=== PATIENT | female | born 1985 | race Caucasian/White ===

== ENCOUNTER → 2016-11-16 | Outpatient (CLI) | payer OTHER ==
[~2016-11-16] MED LIST: ALLERGY SHOTS SC; ASTN NAE; CLR10 PO; CYAN3INJ IM; MTR800 PO; PSEU30TA3 PO; RMCI IV; SULF800T23 PO
== END | disposition home or self-care (01) ==
LOC: C.LAB 17:30
PROVIDERS: ATTEND Registered Nurse
DX: R19.7 Diarrhea, unspecified (principal)

== ENCOUNTER 2016-11-28 15:40 | Emergency (ER) | payer OTHER ==
[~2016-11-28] VITALS: Ht 152.4 cm; Wt 39.6 kg
[~2016-11-28 15:40] MED LIST changes: -SULF800T23 PO
[2016-11-28 16:02] VITALS: TEMP 36.9; Ht 152.4 cm; Wt 39.6 kg
--- NOTE | 2016-11-28 18:42 | EMERGENCY ROOM VISIT NOTE ---
History Report prepared by Vikki: Kingsley Lee Under the Supervision of: Dr. Carlos Alberto Jackson D.O. First contact with patient: 18:10 Chief Complaint: SINUS CONGESTION/PRESSURE Stated Complaint: SINUS INFECTION/FUNGAL Nursing Triage Summary: patient c/o "really bad sinus infection that has lasted for months" states she' s been on antibiotics and antifungals. Hx sinus surgery in the past. Patient complains of equilibrium being off and nasal passages burning. History of Present Illness The patient is a 30 year old female who presents to the Emergency Room with complaints of a persistent sinus infection beginning a few months ago. She notes she has been seen by an ENT and her PCP multiple times for this. She had sinus surgery last year, and has received antibiotics but her symptoms persists. The patient reports her tonsils became swollen about 3 weeks ago, and her ENT noted a fungal infection at this time as well. She is scheduled for a tonsillectomy in a couple months, but she has tried to call and cancel this appointment. She notes that "it smells like something is in her nose" and reports burning sensation in her nose. The patient is on immunosuppressants for Crohn's disease, and also reports a history of hyperthyroidism. Source of History: patient Onset: a few months ago Position: other (sinuses) Quality: other (sinus infection) Timing: other (persistent) Associated Symptoms: + nausea Note: The patient reports swelling of her tonsils. Review of Systems See HPI for pertinent positives & negatives. A total of 10 systems reviewed and were otherwise negative. Past Medical & Surgical Medical Problems: (1) Anal fistula (2) Bartholin's cyst (3) Crohn disease (4) Hypothyroidism (5) Ovarian cyst (6) Sinus arrhythmia Family History Patient reports no known family medical history. Social History Smoking Status: Current Every Day Smoker Alcohol Use: occasionally Marital Status: Housing Status: lives with family Occupation Status: other Current/Historical Medications Scheduled Cyanocobalamin (Vitamin B-12 Inj), 1 ML IM MONTHLY Infliximab (Remicade), 250 MG IV [id number] Sulfa/Trimethoprim (Bactrim Ds 800MG/160MG), 1 TAB PO BID [Allergy Shots], 3 DOSE SC WK Scheduled PRN Azelastine Hcl (Astelin Nasal [place]), 2 SPRAYS [place] BID PRN for Nasal Congestion Ibuprofen (Ibuprofen), 800 MG PO TID PRN for Severe Pain Loratadine (Claritin), 10 MG PO DAILY PRN for Allergy Symptoms Pseudoephedrine Hcl (Sudafed Nasal Decongestan), 30 MG PO UD PRN for Nasal Congestion Allergies Coded Allergies: Bacitracin (Verified Allergy, Unknown, Unknown rxn, 11/28/16) Neomycin (Verified Allergy, Unknown, Unknown rxn, 11/28/16) Polymyxin B (Verified Allergy, Unknown, Unknown rxn, 11/28/16) Physical Exam Vital Signs Date Time Temp Pulse Resp B/P Pulse Ox O2 Delivery O2 Flow Rate FiO2 11/28/16 19:03 75 18 92/51 100 Room Air 11/28/16 16:02 95 Room Air 11/28/16 16:02 36.9 94 17 105/74 98 Room Air Physical Exam CONSTITUTIONAL/VITAL SIGNS: Reviewed / noted above. GENERAL: Non-toxic in appearance. INTEGUMENTARY: Warm, dry, and [place]. HEAD: Normocephalic. EYES: without scleral icterus or trauma. ENT/OROPHARYNX: clear and moist. LYMPHADENOPATHY/NECK: Is supple without lymphadenopathy or meningismus. RESPIRATORY: Lungs clear and equal. CARDIOVASCULAR: Regular rate and rhythm. GI/ABDOMEN: Soft and nontender. No organomegaly or pulsatile mass. No rebound or guarding. Normal bowel sounds. EXTREMITIES: Warm and well perfused. BACK: No CVA tenderness. NEUROLOGICAL: Intact without focal deficits. PSYCHIATRIC: normal affect. MUSCULOSKELETAL: Normally developed with good muscle tone. Medical Decision & Procedures ER Provider Diagnostic Interpretation: Radiology results as stated below per my review and radiologist interpretation: SINUS CT WITHOUT CONTRAST FINDINGS: Visualized portions of the intracranial contents are unremarkable on this unenhanced exam. The orbits are within normal limits. Mastoid air cells are clear. There is no fluid within the middle ears. There is extensive mucosal thickening with near complete opacification of the left sphenoid sinus which has increased since exam of November 19, 2015. The left sphenoethmoidal recess is occluded. The right ostiomeatal complex is narrowed by mucosal thickening. There is mild rightward deviation of the nasal septum. No bony destruction is present. IMPRESSION: 1. Near complete opacification of the left sphenoid sinus which is increased since CT of November 19, 2015. Occluded left sphenoethmoidal recess. 2. No bony destruction. Electronically signed by: Nestor Honeycutt M.D. 11/28/2016 7:11 PM Dictated Date/Time: 11/28/2016 7:07 PM ED Course 181: Previous medical records were reviewed. The patient was evaluated in room C6. A complete history and physical examination was performed. 1944: Ordered Trimethoprim/Sulfamethoxazole 1 tab PO. 1949: On reevaluation, the patient is doing well. I discussed the results and findings with the patient. She verbalized agreement of the treatment plan. The patient was discharged home. Medical Decision Differential includes viral illness, influenza, streptococcal pharyngitis, meningitis, pneumonia, sinusitis, UTI, pyelonephritis, otitis media. This is a 30-year-old female who presents to the ED with a chief complaint of problems with her sinuses. The patient states that she has had symptoms for quite a long time. She is actually had sinus surgery in the past. She sees Dr. Cervantes ENT from [place]. She states that she last saw him about 3 weeks ago. She has been told that she has a bacterial and fungal infection of the sinuses. She states that she is to have her tonsils removed in December because her issues. She has been on a number of antibiotics. Most recently she has been taking Diflucan. The patient states that she has burning in the left side of her nasal passages and smells like there is something in her sinuses. The patient's exam was unremarkable. She does have a history of Crohn's disease. A CT scan of the sinuses reveals left sphenoid sinus opacification that is increased from 11/18. The patient was started on Bactrim. She was given a dose here. She was given Motrin PO. She is to follow-up with her ENT and PCP for continued evaluation of her symptoms. Impression Primary Impression: Sinusitis, acute, sphenoidal Scribe Attestation The scribe's documentation has been prepared under my direction and personally reviewed by me in its entirety. I confirm that the note above accurately reflects all work, treatment, procedures, and medical decision making performed by me. Departure Information Dispostion Home / Self-Care Prescriptions Sulfa/Trimethoprim (Bactrim Ds 800MG/160MG) Tab 1 TAB PO BID, #20 TAB Prov: Carlos Alberto Jackson D.O. 11/28/16 Referrals Genia Connolly D.O. (PCP) Patient Instructions ED Sinusitis Abx Tx, [facility] Additional Instructions Bactrim as prescribed. Follow-up with your ENT specialist as soon as possible for further evaluation.
--- NOTE | 2016-11-28 19:12 | DIAGNOSTIC IMAGING REPORT ---
SINUS CT WITHOUT CONTRAST CLINICAL HISTORY: Sinus pain. Sinus infection. COMPARISON STUDY: Sinus CT November 19, 2015. Technique: Helical axial images of the sinuses were obtained without IV contrast. Coronal reformats were viewed. CT DOSE: 510.14 mGy.cm FINDINGS: Visualized portions of the intracranial contents are unremarkable on this unenhanced exam. The orbits are within normal limits. Mastoid air cells are clear. There is no fluid within the middle ears. There is extensive mucosal thickening with near complete opacification of the left sphenoid sinus which has increased since exam of November 19, 2015. The left sphenoethmoidal recess is occluded. The right ostiomeatal complex is narrowed by mucosal thickening. There is mild rightward deviation of the nasal septum. No bony destruction is present. IMPRESSION: 1. Near complete opacification of the left sphenoid sinus which is increased since CT of November 19, 2015. Occluded left sphenoethmoidal recess. 2. No bony destruction. Electronically signed by: Nestor Honeycutt M.D. 11/28/2016 7:11 PM Dictated Date/Time: 11/28/2016 7:07 PM
[2016-11-28] MEDS ORDERED: SULF800T23 PO (19:40)
[2016-11-28] MEDS ORDERED: IBUPROFEN 600 MG TAB PO STA (19:44)
[2016-11-28] MEDS ORDERED: SULFAMETHOXAZOLE/TRIMETHOPRIM DS 800/160MG TAB PO ONE (19:45)
[2016-11-28 19:59] VITALS: BP 114/69; PULSE 88; O2SAT 100
== END 2016-11-28 20:07 | disposition home or self-care (01) ==
LOC: C.EDB 15:41 → C.EDC 20:07
DX: J01.30 Acute sphenoidal sinusitis, unspecified (principal); K50.90 Crohn's disease, unspecified, without complications; F17.200 Nicotine dependence, unspecified, uncomplicated; Z79.899 Other long term (current) drug therapy

== ENCOUNTER → 2017-02-20 | Outpatient (CLI) | payer OTHER ==
[~2017-02-20] MED LIST changes: +CYAN1KIT3 PO; +METR250T PO; +OXYC-57 PO; +PRED20TA PO; +SULF800T23 PO
[2017-02-20 12:11] LABS: BASO % 0.2 %; BASO ABS # 0.02 K/uL (0-0.2); COMPLETE YES; EOS % 2.8 %; HEMATOCRIT 41.4 % (37-47); IG% 0.2 %; LYMPH % 27.6 %; LYMPH ABS # 2.37 K/uL (1.2-3.4); MEAN CELL VOLUME 90.2 fL (80-100); MEAN CORPUSCULAR HEMOGLOBIN 30.5 pg (25-34); MEAN CORPUSCULAR HGB CONC 33.8 g/dl (32-36); MEAN PLATELET VOLUME 10.2 fL (7.4-10.4); MONO % 5.2 %; PLATELET COUNT 339 K/uL (130-400); RED BLOOD COUNT 4.59 M/uL (4.2-5.4)
[2017-02-20 12:41] LABS: ALT/SGPT 22 U/L (12-78); BLOOD UREA NITROGEN 12 mg/dl (7-18); BUN/CREATININE RATIO 16.7 (10-20); C-REACTIVE PROTEIN < 0.29 mg/dl (0-0.29); CALCIUM 9.3 mg/dl (8.5-10.1); CARBON DIOXIDE 25 mmol/L (21-32); CHLORIDE 106 mmol/L (98-107); CREATININE 0.69 mg/dl (0.60-1.20); GLUCOSE 77 mg/dl (70-99); POTASSIUM 3.9 mmol/L (3.5-5.1); SODIUM 138 mmol/L (136-145)
[2017-02-20 12:44] LABS: ALB/GLOB RATIO 1.2 (0.9-2); ALKALINE PHOSPHATASE 48 U/L (45-117); AST/SGOT 9 U/L (15-37)
== END | disposition home or self-care (01) ==
LOC: C.LABSPEC 12:02
PROVIDERS: ATTEND Registered Nurse
DX: K50.90 Crohn's disease, unspecified, without complications (principal)

== ENCOUNTER 2017-06-18 16:58 | Emergency (ER) | payer OTHER ==
[~2017-06-18] VITALS: Ht 152.4 cm; Wt 38.4 kg
[~2017-06-18 16:58] MED LIST changes: -CYAN1KIT3 PO; -METR250T PO; -OXYC-57 PO; -PRED20TA PO; -SULF800T23 PO
[2017-06-18 17:42] VITALS: TEMP 37.3; Ht 152.4 cm; Wt 38.4 kg
[2017-06-18] MEDS ORDERED: ONDANSETRON INJ 2 MG/ML 2 ML VIAL IV STA ×2 (18:14)
[2017-06-18] MEDS ORDERED: METHYLPREDNISOLONE 125 MG VIAL IV STA (18:14)
[2017-06-18] MEDS ORDERED: KETOROLAC TROMETHAMINE 30 MG/ML VIAL IV STA (18:14)
[2017-06-18] MEDS ORDERED: SODIUM CHLORIDE 0.9% 1000ML 1,000 ML IV STA (18:14)
--- NOTE | 2017-06-18 18:22 | EMERGENCY ROOM VISIT NOTE ---
History Report prepared by Vikki: Robin Cronin Under the Supervision of: Dr. Connor Cardona M.D. First contact with patient: 18:06 Chief Complaint: ABDOMINAL PAIN Stated Complaint: STOMACH PAIN Nursing Triage Summary: patient to ED via triage c/o abdominal pain, states "I have crohn's, and I have been fluctuating between diarhhea and being blocked up, I'm worried I have blockage at this point. Theres a constant pain that flares up" History of Present Illness The patient is a 31 year old female who presents to the Emergency Room with complaints of worsening stabbing right lower quadrant abdominal pain that began today. She rates her pain a 5/10 in severity. She has a past medical history of Crohn's disease that has been under control for quite some time. However, over the past two months she has not been having stable, normal bowel movements. She is either going very frequently or is constipated. She has been using multiple medications to try to normalize her bowels, but they have not been helping. She is currently on Remicade for her Crohn's. When she tried to eat some soup earlier today, her pain began to radiate to her back and diffusely throughout her abdomen. She had a very thin bowel movement today, but it was not much. She is also lightheaded and dizzy. She denies any melena or hematochezia. She notes that steroids help her Crohn's symptoms. Source of History: patient Onset: today Position: abdomen (RLQ) Symptom Intensity: 5/10 Quality: stabbing Timing: worsening Associated Symptoms: + back pain, No melena, No hematochezia Note: She is dizzy and lightheaded. Review of Systems See HPI for pertinent positives & negatives. A total of 10 systems reviewed and were otherwise negative. Past Medical & Surgical Medical Problems: (1) Anal fistula (2) Bartholin's cyst (3) Crohn disease (4) Hypothyroidism (5) Ovarian cyst (6) Sinus arrhythmia Family History Patient reports no known family medical history. Social History Smoking Status: Current Every Day Smoker Alcohol Use: occasionally Marital Status: Housing Status: lives with family Occupation Status: other Current/Historical Medications Scheduled Cyanocobalamin (B-12 Compliance Injection), 1,000 MCG PO MONTHLY Infliximab (Remicade), 250 MG IV [id number] Scheduled PRN Azelastine Hcl (Astelin Nasal [place]), 2 SPRAYS [place] BID PRN for Nasal Congestion Loratadine (Claritin), 10 MG PO DAILY PRN for Allergy Symptoms Oxycodone/Acetaminophen 5MG/325MG (Percocet 5MG/325MG), 1 TABLET PO Q4H PRN for Pain Pseudoephedrine Hcl (Sudafed Nasal Decongestan), 30 MG PO UD PRN for Nasal Congestion Allergies Coded Allergies: Bacitracin (Verified Allergy, Unknown, Unknown rxn, 06/18/17) Neomycin (Verified Allergy, Unknown, Unknown rxn, 06/18/17) Polymyxin B (Verified Allergy, Unknown, Unknown rxn, 06/18/17) Physical Exam Vital Signs Date Time Temp Pulse Resp B/P (MAP) Pulse Ox O2 Delivery O2 Flow Rate FiO2 06/18/17 19:33 96 112/62 94 Room Air 06/18/17 17:42 37.3 126 20 104/70 100 Room Air Physical Exam GENERAL: Patient is in no acute distress. HEENT: No acute trauma, normocephalic atraumatic, mucous membranes moist, no nasal congestion, no scleral icterus. NECK: No stridor, no adenopathy, no meningismus, trachea is midline. LUNGS: Clear to auscultation bilaterally, no wheeze, no rhonchi, breath sounds equal. HEART: Tachycardic with a regular rhythm. No murmurs. ABDOMEN: Soft, diffuse moderate tenderness, bowel sounds positive, no hernias, no peritonitis. EXTREMITIES: No cyanosis or edema, full range of motion of all the joints without pain or difficulty, no signs for acute trauma. NEUROLOGIC: Oriented x 3, no acute motor or sensory deficits, no focal weakness. SKIN: No rash, no jaundice, no diaphoresis. Medical Decision & Procedures ER Provider Diagnostic Interpretation: Radiology results as stated below per my review and radiologist interpretation: CT ABD/PELVIS IV CONTRAST ONLY CLINICAL HISTORY: Abdominal pain. Possible bowel obstruction. COMPARISON STUDY: 08/18/2015 TECHNIQUE: Following the IV administration of 116 mL of Optiray-320, CT scan of the abdomen and pelvis was performed from the lung bases to the proximal femurs. Images are reviewed in the axial, sagittal, and coronal planes. IV contrast was administered without complication. A dose lowering technique was utilized adhering to the principles of ALARA. CT DOSE: 229.40 mGy.cm FINDINGS: Lower chest: The heart is normal in size and configuration, without pericardial effusion. The lung bases and pleural spaces are clear. Liver: There is small hepatic hypodensities, the largest of which is located within the right lobe measuring 15 mm. This demonstrates nodular peripheral enhancement. This likely represents a hemangioma Gallbladder: Unremarkable. Spleen: Normal in size and attenuation. Pancreas: Unremarkable. Adrenal glands: Unremarkable. Kidneys: There are 2 right renal hypodensities, the largest of which measures 7 mm. These likely represent cysts Bowel: Evaluation the bowel is limited given the lack of orally administered contrast and the possibility of intra-abdominal fat. There are multiple fluid-filled bowel loops. There are no transition zones to indicate a high-grade bowel obstruction. There are no findings to indicate acute appendicitis. There are no findings to indicate acute diverticulitis. There is equivocal mild infiltration of the perirectal fat. Peritoneum: There is no intraperitoneal free air or abdominal ascites. Vasculature: The abdominal aorta is normal in course and caliber. Adenopathy: None. Pelvic viscera: The bladder, and pelvic viscera are unremarkable. Skeletal structures: No destructive osseous lesions are seen. IMPRESSION: 1. Multiple mildly prominent fluid-filled bowel loops without evidence of a discrete transition zone. The findings may represent a mild ileus. There are no current CT findings to indicate a high-grade bowel obstruction. There is no free air. 2. Multiple hepatic masses, likely representing hemangiomas 3. No evidence of acute diverticulitis. No evidence of acute appendicitis 4. Equivocal mild infiltration of the perirectal fat. Clinical correlation with regards to symptoms of a proctitis is recommended. Electronically signed by: Mayco Elena M.D. 06/18/2017 7:57 PM Dictated Date/Time: 06/18/2017 7:48 PM Laboratory Results 06/18/17 18:14 Red Blood Count 4.53, Mean Corpuscular Volume 90.5, Mean Corpuscular Hemoglobin 30.9, Mean Corpuscular Hemoglobin Concent 34.1, Mean Platelet Volume 9.5, Neutrophils (%) (Auto) 86.2, Lymphocytes (%) (Auto) 7.3, Monocytes (%) (Auto) 5.9, Eosinophils (%) (Auto) 0.2, Basophils (%) (Auto) 0.0, Neutrophils # (Auto) 18.10, Lymphocytes # (Auto) 1.53, Monocytes # (Auto) 1.25, Eosinophils # (Auto) 0.05, Basophils # (Auto) 0.01 06/18/17 18:14 Test 06/18/17 18:14 06/18/17 19:50 White Blood Count 21.02 K/uL (4.8-10.8) Red Blood Count 4.53 M/uL (4.2-5.4) Hemoglobin 14.0 g/dL (12.0-16.0) Hematocrit 41.0 % (37-47) Mean Corpuscular Volume 90.5 fL (80-100) Mean Corpuscular Hemoglobin 30.9 pg (25-34) Mean Corpuscular Hemoglobin Concent 34.1 g/dl (32-36) Platelet Count 299 K/uL (130-400) Mean Platelet Volume 9.5 fL (7.4-10.4) Neutrophils (%) (Auto) 86.2 % Lymphocytes (%) (Auto) 7.3 % Monocytes (%) (Auto) 5.9 % Eosinophils (%) (Auto) 0.2 % Basophils (%) (Auto) 0.0 % Neutrophils # (Auto) 18.10 K/uL (1.4-6.5) Lymphocytes # (Auto) 1.53 K/uL (1.2-3.4) Monocytes # (Auto) 1.25 K/uL (0.11-0.59) Eosinophils # (Auto) 0.05 K/uL (0-0.5) Basophils # (Auto) 0.01 K/uL (0-0.2) RDW Standard Deviation 42.0 fL (36.4-46.3) RDW Coefficient of Variation 12.7 % (11.5-14.5) Immature Granulocyte % (Auto) 0.4 % Immature Granulocyte # (Auto) 0.08 K/uL (0.00-0.02) Anion Gap 8.0 mmol/L (3-11) Est Creatinine Clear Calc Drug Dose 75.3 ml/min Estimated GFR () 136.2 Estimated GFR (Non- 117.5 BUN/Creatinine Ratio 18.2 (10-20) Calcium Level 9.1 mg/dl (8.5-10.1) Total Bilirubin 0.5 mg/dl (0.2-1) Aspartate Amino Transf (AST/SGOT) 9 U/L (15-37) Alanine Aminotransferase (ALT/SGPT) 22 U/L (12-78) Alkaline Phosphatase 48 U/L (45-117) Total Protein 7.6 gm/dl (6.4-8.2) Albumin 4.2 gm/dl (3.4-5.0) Globulin 3.4 gm/dl (2.5-4.0) Albumin/Globulin Ratio 1.2 (0.9-2) Lipase 124 U/L (73-393) Human Chorionic Gonadotropin, Qual NEG (NEG) Urine Color YELLOW Urine Appearance CLEAR (CLEAR) Urine pH 5.0 (4.5-7.5) Urine Specific [place] 1.033 (1.000-1.030) Urine Protein NEG (NEG) Urine Glucose (UA) NEG (NEG) Urine Ketones NEG (NEG) Urine Occult Blood 2+ (NEG) Urine Nitrite NEG (NEG) Urine Bilirubin NEG (NEG) Urine Urobilinogen NEG (NEG) Urine Leukocyte Esterase TRACE (NEG) Urine WBC (Auto) 1-5 /hpf (0-5) Urine RBC (Auto) 5-10 /hpf (0-4) Urine Hyaline Casts (Auto) 1-5 /lpf (0-5) Urine Epithelial Cells (Auto) >30 /lpf (0-5) Urine Bacteria (Auto) NEG (NEG) Laboratory results reviewed by me. Medications Administered Medications (Trade) Dose Ordered Sig/Anne Route Start Time Stop Time Status Last Admin Dose Admin Ondansetron HCl (Zofran Inj) 4 mg NOW STAT IV 06/18/17 18:14 06/18/17 18:17 DC 06/18/17 18:55 4 MG Sodium Chloride 1,000 ml @ 999 mls/hr Q1H1M STAT IV 06/18/17 18:14 06/18/17 19:14 DC 06/18/17 18:54 999 MLS/HR Ketorolac Tromethamine (Toradol Inj) 30 mg NOW STAT IV 06/18/17 18:14 06/18/17 18:17 DC 06/18/17 18:56 30 MG Methylprednisolone Sodium Succinate (Solu-Medrol IV) 80 mg NOW STAT IV 06/18/17 18:14 06/18/17 18:17 DC 06/18/17 18:54 80 MG ED Course 1805: The patient was evaluated in room B10. A complete history and physical exam was performed. 1813: Ordered Solu-Medrol IV 80 mg IV, Zofran Inj 4 mg IV, Toradol Inj 30 mg IV , Sodium Chloride 1000 ml @ 999 mls/hr IV, Zofran Inj 4 mg IV 2012: I spoke with Dr. Hilton of gastroenterology at this time. We discussed the patient's case. He would prefer to have the patient receive steroids and stay as an inpatient for observation to be seen by him tomorrow. However, if she does not want to stay, she should be placed on Flagyl and a tapering dose of Steroids to be followed up with in his office. 2023: The patient would like to stay. I spoke [place] [facility] [place] evaluate the patient for further management and care. Medical Decision Differential diagnosis includes but is not limited to Crohn's exacerbation, bowel obstruction, dehydration, viral illness, UTI, renal failure, and electrolyte imbalance. There is a significant leukocytosis of 21,000, this could be consistent with infection or her pain. No anemia. No significant electrolyte abnormality, kidney failure or hepatitis. There is no pancreatitis. testing is negative. Urinalysis does not show infection. Abdominal and pelvis CT shows an ileus with a possible subtle proctitis. No true bowel obstruction. Clinically, the patient was not toxic or febrile. She did not have peritonitis. The patient received IV Zofran, IV Toradol, IV Solu-Medrol and IV saline, she feels improved, her tachycardia has resolved. The patient presents with diffuse abdominal pain, she has a leukocytosis. She has had ongoing symptoms now for weeks, she has seen GI recently. She is failing outpatient treatment. I talked to the patient's GI doctor. A hospital stay for hydration, bowel rest , IV steroids and close observation was recommended. I did speak to the patient about her findings and about the plan. I spoke with case management. The on-call hospitalist was consulted. Medication Reconcilliation Current Medication List: was personally reviewed by me Blood Pressure Screening Patient's blood pressure: Normal blood pressure Blood pressure disposition: Did not require urgent referral Consults Time Called: 2009 Consulting Physician: Dr. Hilton - Gastroenterology Returned Call: 2012 We discussed the patient's case. He would prefer to have the patient receive steroids and stay as an inpatient for observation to be seen by him tomorrow. However, if she does not want to stay, she should be placed on Flagyl and a tapering dose of Steroids to be followed up with in his office. Impression Primary Impression: Leukocytosis Additional Impressions: Ileus Exacerbation of Crohn's disease Failure of outpatient treatment Scribe Attestation The scribe's documentation has been prepared under my direction and personally reviewed by me in its entirety. I confirm that the note above accurately reflects all work, treatment, procedures, and medical decision making performed by me. Departure Information Dispostion Being Evaluated By Hospitalist Genia Carranza D.O. (PCP) Patient Instructions My [facility] Problem Qualifiers Primary Impression: Leukocytosis Leukocytosis type: unspecified Qualified Codes: D72.829 - Elevated white blood cell count, unspecified Additional Impressions: Exacerbation of Crohn's disease Digestive disease complication type: without complication Qualified Codes: K50.90 - Crohn's disease, unspecified, without complications
[2017-06-18] MEDS ORDERED: CYAN1KIT3 PO (18:31)
[2017-06-18] MEDS ORDERED: OXYC-57 PO (18:31)
[2017-06-18 18:52] LABS: BASO ABS # 0.01 K/uL (0-0.2); COMPLETE YES; EOS % 0.2 %; IG% 0.4 %; LYMPH % 7.3 %; LYMPH ABS # 1.53 K/uL (1.2-3.4); MEAN CELL VOLUME 90.5 fL (80-100); MEAN CORPUSCULAR HEMOGLOBIN 30.9 pg (25-34); MEAN CORPUSCULAR HGB CONC 34.1 g/dl (32-36); MEAN PLATELET VOLUME 9.5 fL (7.4-10.4); MONO % 5.9 %; NEUT % 86.2 %; PLATELET COUNT 299 K/uL (130-400); RED BLOOD COUNT 4.53 M/uL (4.2-5.4); WHITE BLOOD COUNT 21.02 K/uL (4.8-10.8)
[2017-06-18 19:11] LABS: PREG INTERNAL NEGATIVE QC NEG CLEAR BACKGROUND; PREG INTERNAL POSITIVE QC POS CONTROL LINE
[2017-06-18 19:12] LABS: BUN/CREATININE RATIO 18.2 (10-20); CALCIUM 9.1 mg/dl (8.5-10.1); CREATININE 0.65 mg/dl (0.60-1.20); POTASSIUM 3.2 mmol/L (3.5-5.1)
[2017-06-18 19:15] LABS: ALB/GLOB RATIO 1.2 (0.9-2)
[2017-06-18] MEDS ORDERED: OPTIRAY 320 IV PRN (19:45)
--- NOTE | 2017-06-18 19:59 | DIAGNOSTIC IMAGING REPORT ---
CT ABD/PELVIS IV CONTRAST ONLY CLINICAL HISTORY: Abdominal pain. Possible bowel obstruction. COMPARISON STUDY: 08/18/2015 TECHNIQUE: Following the IV administration of 116 mL of Optiray-320, CT scan of the abdomen and pelvis was performed from the lung bases to the proximal femurs. Images are reviewed in the axial, sagittal, and coronal planes. IV contrast was administered without complication. A dose lowering technique was utilized adhering to the principles of ALARA. CT DOSE: 229.40 mGy.cm FINDINGS: Lower chest: The heart is normal in size and configuration, without pericardial effusion. The lung bases and pleural spaces are clear. Liver: There is small hepatic hypodensities, the largest of which is located within the right lobe measuring 15 mm. This demonstrates nodular peripheral enhancement. This likely represents a hemangioma Gallbladder: Unremarkable. Spleen: Normal in size and attenuation. Pancreas: Unremarkable. Adrenal glands: Unremarkable. Kidneys: There are 2 right renal hypodensities, the largest of which measures 7 mm. These likely represent cysts Bowel: Evaluation the bowel is limited given the lack of orally administered contrast and the possibility of intra-abdominal fat. There are multiple fluid-filled bowel loops. There are no transition zones to indicate a high-grade bowel obstruction. There are no findings to indicate acute appendicitis. There are no findings to indicate acute diverticulitis. There is equivocal mild infiltration of the perirectal fat. Peritoneum: There is no intraperitoneal free air or abdominal ascites. Vasculature: The abdominal aorta is normal in course and caliber. Adenopathy: None. Pelvic viscera: The bladder, and pelvic viscera are unremarkable. Skeletal structures: No destructive osseous lesions are seen. IMPRESSION: 1. Multiple mildly prominent fluid-filled bowel loops without evidence of a discrete transition zone. The findings may represent a mild ileus. There are no current CT findings to indicate a high-grade bowel obstruction. There is no free air. 2. Multiple hepatic masses, likely representing hemangiomas 3. No evidence of acute diverticulitis. No evidence of acute appendicitis 4. Equivocal mild infiltration of the perirectal fat. Clinical correlation with regards to symptoms of a proctitis is recommended. Electronically signed by: Mayco Elena M.D. 06/18/2017 7:57 PM Dictated Date/Time: 06/18/2017 7:48 PM
[2017-06-18 20:09] LABS: URINE APPEARANCE CLEAR (CLEAR); URINE BILIRUBIN NEG (NEG); URINE COLOR YELLOW; URINE EPITHELIAL CELL AUTO >30 /lpf (0-5); URINE NITRITE NEG (NEG); URINE SPECIFIC GRAVITY 1.033 (1.000-1.030); UROBILINOGEN NEG (NEG); ZZUR CULT IF INDIC CLEAN CATCH NO
[2017-06-18 20:12] LABS: MANUAL MICROSCOPIC REQUIRED? NO; REVIEW REQ? NO
[2017-06-18] MEDS ORDERED: METRONIDAZOLE 250 MG TAB PO STA (20:54)
[2017-06-18] MEDS ORDERED: PRED20TA PO (20:56)
[2017-06-18] MEDS ORDERED: METR250T PO (20:56)
--- NOTE | 2017-06-18 20:59 | EMERGENCY ROOM VISIT NOTE ---
ED Visit Note First contact with patient: 18:06 After the patient was seen by the hospitalist, the patient decided that she would rather go home. She was concerned about being able to sleep in the hospital and she was feeling well enough she thought to go home. The patient as per Dr. dennis's advice, is being discharged on Flagyl 3 times a day for a week. She will be on a prednisone taper. A bland diet was suggested. The patient already has a stool culture kit at home to bring in when able. The patient will see GI in the next few days, she will call tomorrow for an appointment. The patient was encouraged to return here for worsening symptoms or lack of improvement.
[2017-06-18 21:07] VITALS: BP 107/66; PULSE 97; O2SAT 99
== END 2017-06-18 21:08 | disposition home or self-care (01) ==
LOC: C.EDB 16:59
DX: K56.7 Ileus, unspecified (principal); K50.90 Crohn's disease, unspecified, without complications; D72.829 Elevated white blood cell count, unspecified; F17.200 Nicotine dependence, unspecified, uncomplicated; R42 Dizziness and giddiness

== ENCOUNTER → 2017-11-14 | Outpatient (CLI) | payer OTHER ==
[~2017-11-14] MED LIST changes: -ALLERGY SHOTS SC; +BCPILLS PO; +CYAN1KIT3 PO; -CYAN3INJ IM; +IBUP-1428 PO; -MTR800 PO; +OXYC-57 PO; +PRED10TA PO; -PSEU30TA3 PO
== END | disposition home or self-care (01) ==
LOC: C.MAMM 08:43
PROVIDERS: ATTEND Registered Nurse
DX: M85.89 Other specified disorders of bone density and structure, multiple sites (principal); K50.90 Crohn's disease, unspecified, without complications

== ENCOUNTER → 2017-11-14 | Outpatient (CLI) | payer OTHER | END | disposition home or self-care (01) | LOC: C.LAB1850 09:49 | PROVIDERS: ATTEND Registered Nurse | DX: R53.83 Other fatigue (principal) ==